=== PATIENT | female | born 1965 | race Caucasian/White ===

== ENCOUNTER → 2019-08-09 | Day surgery (SDC) | payer OTHER ==
[~2019-08-09] MED LIST: Lactated Ringers 1,000 ML IV SCH; Propofol 200 MG/20 ML SDV IV ONE
--- NOTE | 2019-08-09 10:19 | OR ---
DATE OF OPERATION: 08/09/2019 PREOPERATIVE DIAGNOSIS: DYSPEPSIA, GASTROESOPHAGEAL REFLUX DISEASE. POSTOPERATIVE DIAGNOSIS: LARGE HIATAL HERNIA. SURGEON: Doe Pham MD PROCEDURE: EGD WITH DARYN. ANESTHESIA: MAC. COMPLICATIONS: None. SPECIMEN: Antral DARYN. FINDINGS: 1. Full-length EGD. 2. Large hiatal hernia with GERD. No distal esophagitis, stricturing, ulceration, or Gould's changes. RECOMMENDATIONS: Ongoing medical therapy. INDICATIONS: The patient has been having some ongoing dyspepsia, postprandial abdominal pain, and reflux. She does have an abnormal gallbladder ultrasound. We elected to proceed with EGD due to her ongoing GERD and to evaluate for any Gould's changes. DESCRIPTION OF PROCEDURE: The patient was prepped and draped, placed in the left lateral decubitus position. A lubricated Olympus gastroscope was inserted over a bit, advanced to cricopharyngeus area and intubated in the esophagus. The esophageal lining was benign in its entire course. The Z-line was crisp and sharp at 34 cm. There was a moderate-sized hiatal hernia present with spontaneous reflux seen. No distal esophagitis, stricturing, ulceration, or Gould's changes noticed. The scope was advanced into the stomach, through the pylorus, and into the 2nd portion of the duodenum. This and the duodenal bulb were benign. Thorough evaluation of stomach showed no signs of any peptic ulcer disease, polyp, mass, ulceration, or lesion. CLOtest was obtained. Air was then suctioned, scope removed without complication. TRESSA/LESLIE /[id number]
[2019-08-09 10:24] VITALS: BP 110/69; PULSE 106
== END ==
LOC: CC.SDS 08:55
PROVIDERS: ATTEND Family Medicine
DX: K21.9 Gastro-esophageal reflux disease without esophagitis (principal); K44.9 Diaphragmatic hernia without obstruction or gangrene; M81.8 Other osteoporosis without current pathological fracture; E66.9 Obesity, unspecified; Z68.33 Body mass index [BMI] 33.0-33.9, adult; Z87.891 Personal history of nicotine dependence; Z88.2 Allergy status to sulfonamides
CPT/HCPCS: 43239; 87081; J2704; J7120

== ENCOUNTER → 2019-09-12 | Day surgery (SDC) | payer OTHER ==
[~2019-09-12] MED LIST changes: +Acetaminophen/oxyCODONE 325-5 MG Tab PO PRN; +Ketorolac 30 MG/ML SDV IVPUSH ONE; -Lactated Ringers 1,000 ML IV SCH; +Lidocaine 1% with EPINEPHrine 1:100,000 20 ML MDV ONE; +Midazolam 1 MG/ML 2 ML SDV IV ONE; +Morphine 4 MG/ML VIAL IV PRN; +Ondansetron 4 MG/2 ML SDV IV ONE; +Ondansetron 4 MG/2 ML SDV IVPUSH PRN; +Rocuronium 50 MG/5 ML Vial IV ONE; +Sodium Chloride 0.9% 10 ML Syringe FLUSH PRN; +Succinylcholine 200 MG/10 ML MDV IV ONE; +ceFAZolin 1 GM Vial IVPUSH ONE; +diphenhydrAMINE 50 MG/ML SDV IV ONE; +ePHEDrine 50 MG/ML SDV IV ONE; +fentaNYL 100 MCG/2 ML SDV IV ONE
[2019-09-12] MEDS: Lactated Ringers 1,000 ML IV SCH ×4 (09:38→21:00)
[2019-09-12] MEDS: Acetaminophen 325 MG Tab PO PRN ×2 (16:58→21:04)
--- NOTE | 2019-09-12 17:41 | OR ---
DATE OF OPERATION: 09/12/2019 PREOPERATIVE DIAGNOSIS: CHRONIC CHOLECYSTITIS, CHOLELITHIASIS. POSTOPERATIVE DIAGNOSIS: CHRONIC CHOLECYSTITIS, CHOLELITHIASIS. SURGEON: Jarrett Escamilla MD PROCEDURE: LAPAROSCOPIC CHOLECYSTECTOMY. ANESTHESIA: General. ESTIMATED BLOOD LOSS: Minimum. SPECIMEN: Gallbladder and stones. FINDINGS: Normal appearing gallbladder wall, but multiple small BB-sized stones. RECOMMENDATIONS: Followup as needed. This patient also has gastroesophageal reflux disease and would like to see how she does post laparoscopic cholecystectomy before we would consider repairing her hiatal hernia. INDICATIONS: This is a 54-year-old female who has epigastric and right upper quadrant abdominal pain. She initially was being worked up for reflux. However, an ultrasound shows multiple small stones within the gallbladder, and I think her symptoms lend themselves more to gallbladder problems than hiatal hernia, reflux problems. DESCRIPTION OF PROCEDURE: After adequate preparation, trocars were placed intra- abdominally and the abdomen insufflated. Examination the abdomen is normal. There was no adhesions and no gross abnormalities. The gallbladder was elevated over the liver bed and the cystic triangle structures were dissected free. These were each triply clipped and divided, the duct separate from the artery. The gallbladder was taken off the liver bed using cautery dissection. The right upper quadrant was irrigated with saline and suctioned clear. The gallbladder was brought out through by placing within a sterile retrieval bag and bring it out through the epigastric trocar site. The abdomen was then desufflated. Trocars removed and the skin closed with 4-0 Vicryl. MEGHA/MARYL /[id number]
[2019-09-13] MEDS: Acetaminophen 325 MG Tab PO PRN (05:42)
[2019-09-13 07:38] VITALS: BP 134/76; PULSE 62
--- NOTE | 2019-09-13 08:16 | PCM.SN ---
- Free Text/Narrative Note: Stable POD #1. Pain controlled. PO intake good. Wound clean and dry. Can discharge. No restrictions. FU my clinic October 17. Martinet(#20).
== END | disposition home or self-care (01) ==
LOC: CC.SDS 09:12
PROVIDERS: ATTEND Surgery
DX: K80.10 Calculus of gallbladder with chronic cholecystitis without obstruction (principal); K82.8 Other specified diseases of gallbladder; K21.9 Gastro-esophageal reflux disease without esophagitis; Z88.2 Allergy status to sulfonamides; Z79.899 Other long term (current) drug therapy; Z87.891 Personal history of nicotine dependence
CPT/HCPCS: 47562; A9270; J0330; J0690; J1200; J1885; J2250; J2405; J2704; J3010; J7120

== ENCOUNTER 2021-09-10 14:49 | Emergency (ER) | payer OTHER ==
[2021-09-10 15:31] LABS: CHLORIDE,CL 103 mEq/L (98-106); SODIUM,NA 140 mEq/L (136-145)
[2021-09-10] MEDS ORDERED: Metoprolol Tartrate 5 MG/5 ML SDV IVPUSH ONE ×2 (15:32→15:57)
[2021-09-10 15:33] LABS: PTT,PARTIAL THROMBOPLSTIN TIME 19.4 SEC (23.2-32.3)
[2021-09-10] MEDS: Metoprolol Tartrate 5 MG/5 ML SDV ONE ×2 (15:42→15:49)
[2021-09-10] MEDS ORDERED: Alteplase 81 MG in Infusion 1 VIAL IV STA (16:00)
[2021-09-10 17:44] VITALS: BP 170/91; PULSE 71
== END 2021-09-10 18:30 ==
LOC: CC.ED 14:49
DX: I63.9 Cerebral infarction, unspecified (principal); Z88.2 Allergy status to sulfonamides; Z88.1 Allergy status to other antibiotic agents
CPT/HCPCS: 36415; 37195; 70450; 80053; 80307; 82550; 83615; 84484; 85025; 85610; 85730; 93005; 96374; 99284; 99285-25; J2997; J3490

== ENCOUNTER 2024-01-18 07:34 | Day surgery (SDC) | payer BC ==
[2024-01-18] MEDS: Lactated Ringers 1,000 ML IV SCH (07:51)
[2024-01-18] MEDS ORDERED: fentaNYL 50 MCG/ML SDV ONE (08:30)
[2024-01-18] MEDS ORDERED: Propofol 200 MG/20 ML SDV ONE (08:30)
[2024-01-18] MEDS ORDERED: Midazolam 1 MG/ML 2 ML SDV ONE (08:30)
[2024-01-18] MEDS: Lidocaine 1% with EPINEPHrine 1:100,000 20 ML MDV SUBCUT ONE (08:56)
[2024-01-18] MEDS: Bacitracin Oint 1 GM U/D Packet TOP ONE (09:15)
[2024-01-18 09:58] VITALS: BP 113/62; PULSE 58
== END 2024-01-18 10:15 | disposition home or self-care (01) ==
LOC: CC.SDS 07:34
PROVIDERS: ATTEND Surgery
DX: H02.824 Cysts of left upper eyelid (principal); I10 Essential (primary) hypertension; K21.9 Gastro-esophageal reflux disease without esophagitis; E78.5 Hyperlipidemia, unspecified; Z79.82 Long term (current) use of aspirin; Z79.899 Other long term (current) drug therapy; Z88.2 Allergy status to sulfonamides
CPT/HCPCS: J2250; J2704; J3010; J3490; J7120

== ENCOUNTER 2024-05-23 13:28 | Emergency (ER) | payer BC ==
[2024-05-23 13:56] LABS: BASOPHILS ABSOLUTE AUTO 0.04 10^3/uL (0.00-0.50); BASOPHILS PERCENT AUTO 0.5 % (0-1); EOSINOPHILS ABSOLUTE AUTO 0.17 10^3/uL (0.00-1.50); EOSINOPHILS PERCENT AUTO 2.3 % (0-6); HEMATOCRIT 41.1 % (37.0-47.0); HEMOGLOBIN 13.5 g/dL (12.0-16.0); IMMATURE GRAN ABSOLUTE AUTO 0.01 10^3/uL (0.00-0.49); IMMATURE GRAN PERCENT AUTO 0.1 % (0.0-4.9); LYMPHOCYTES ABSOLUTE AUTO 3.07 10^3/uL (0.60-5.00); LYMPHOCYTES PERCENT AUTO 41.7 % (24-44); MEAN CORPUSCULAR HEMOGLOBIN 32.4 pg (27.0-32.0); MEAN CORPUSCULAR HGB CONC 32.8 g/dL (32.0-36.0); MEAN CORPUSCULAR VOLUME 98.6 fL (83.0-97.0); MONOCYTES ABSOLUTE AUTO 0.83 10^3/uL (0.00-1.50); MONOCYTES PERCENT AUTO 11.3 % (0-10); NEUTROPHILS ABSOLUTE AUTO 3.25 x10^3/uL (1.80-8.00); NEUTROPHILS PERCENT AUTO 44.1 % (41-71); PLATELET COUNT,PLT 280 10^3/uL (150-400); RED BLOOD CELL COUNT 4.17 x10^6/uL (4.00-5.50); WHITE BLOOD CELL COUNT,WBC 7.4 10^3/uL (4.0-11.0)
[2024-05-23 14:16] LABS: ALBUMIN 3.8 g/dL (3.4-5.0); BILIRUBIN TOTAL 0.5 mg/dL (0.0-1.0); CALCIUM 9.6 mg/dL (8.4-10.1); CREATININE 1.2 mg/dL (0.6-1.0); EST CRCL DRUG DOSING (CG) 43.05 mL/min; POTASSIUM,K 3.5 mEq/L (3.5-5.0); PROTEIN TOTAL,TP 7.7 g/dL (6.4-8.2)
[2024-05-23] MEDS: Aspirin 81 MG Tab.Chew PO ONE (14:24)
[2024-05-23 14:37] LABS: D-DIMER QUANTITATIVE 0.58 (0.00-0.50); PTT,PARTIAL THROMBOPLSTIN TIME 22.8 SEC (20.0-30.0)
[2024-05-23 17:44] VITALS: BP 148/74; PULSE 67
[2024-05-23] MEDS ORDERED: Aspirin 81 MG Tab.Chew PO SCH (20:00)
== END 2024-05-23 17:25 | disposition home or self-care (01) ==
LOC: CC.ED 13:28
DX: R07.9 Chest pain, unspecified (principal); Z91.89 Other specified personal risk factors, not elsewhere classified; Z79.899 Other long term (current) drug therapy; Z79.82 Long term (current) use of aspirin; Z88.2 Allergy status to sulfonamides; Z88.1 Allergy status to other antibiotic agents
CPT/HCPCS: 36415; 71045; 80053; 83690; 83735; 84484; 85025; 85379; 85730; 93005; 99285; A9270-GY